=== PATIENT | female | born 1990 | race Caucasian/White ===

== ENCOUNTER 2019-04-04 15:11 | Inpatient (IN) | payer OTHER ==
[2019-04-04] MEDS ORDERED: miSOPROStoL 100 MCG TAB ONE (15:18)
[2019-04-04] MEDS ORDERED: Ringers Lactate 1,000 ML IV PRN (15:35)
[2019-04-04] MEDS ORDERED: BUTORPHANOL 1 MG/ML INJ IV PRN (15:35)
[2019-04-04] MEDS ORDERED: METHYLERGONOVINE 0.2MG/ML AMP IM PRN (15:35)
[2019-04-04] MEDS ORDERED: PROMETHAZINE INJ 25 MG/ML AMP IM PRN ×2 (15:35)
[2019-04-04] MEDS ORDERED: CARBOPROST TROME 250 MCG/ML IM PRN (15:35)
[2019-04-04] MEDS ORDERED: OXYTOCIN/LR 20 UNIT/1,000 ML BAG IV SCH (16:00)
[2019-04-04] MEDS ORDERED: Ringers Lactate 1,000 ML IV SCH (16:00)
[2019-04-04 16:15] LABS: Absolute Lymphocytes (CBC) 1.4 K/uL (0.7-4.9); Basophils % 0.4 % (0-1.3); Hematocrit 37.8 % (36.0-45.0); Lymphocytes % 14.5 % (15.3-44.8); MPV 9.9 fL (7.6-11.3); RBC Red Blood Cell Count 3.95 M/uL (3.86-4.86); Urine Appearance CLOUDY; Urine Bilirubin NEGATIVE (NEG); Urine Blood NEGATIVE (NEG); Urine Color YELLOW; Urine Glucose NEGATIVE (NEG); Urine Protein NEGATIVE (NEG); Urine Specific Gravity 1.025 (1.005-1.030); Urine pH 6.5 (5.0-7.0)
[2019-04-04 16:16] LABS: Urine Microscopic Reflex ORDER UMIC
[2019-04-04 17:07] LABS: Urine Bacteria >50 /HPF (<20); Urine Culture Reflex Order REFLEXED; Urine RBC <5 /HPF (NONE SEEN)
[2019-04-04 17:59] VITALS: BMI 36.3
[2019-04-04] MEDS ORDERED: TERBUTALINE SULF 1 MG/1ML SQ ONE (18:52)
[2019-04-04] MEDS ORDERED: TERBUTALINE SULF 1 MG/1ML ONE (18:53)
--- NOTE | 2019-04-04 19:16 | PREOPHP ---
Date of Admission: 04/04/2019 This is a 29-year-old primigravida, 39 weeks 4 days for Cytotec insertion. Full insertion talk and p re-insertion talk given. Patient is Rh negative, has had RhoGAM during the . Rubella immun e. Patient has had significant swelling, but thus far not become preeclamptic. Her cervix is 1 to 1 .5 cm, 50% effaced, vertex, -1 to -2 station. We have inserted 50 mcg of Cytotec. We will insert an other 50 mcg in 6 hours and a third dose if needed 6 hours later. At that point, sometime after the third dose of Cytotec, we will start oxytocin. Anticipate rupture of membranes tomorrow morning and have in the baby some time tomorrow. Full labor and Cytotec talk given. CHUY/ASYA Voice ID: [id number]
--- NOTE | 2019-04-04 21:42 | PN ---
The patient had 50 mcg of Cytotec inserted at approximately 3:30. About 30-45 minutes ago started quiroz ving decelerations some into the 80 range for 30-40 seconds. She was hydrated and given a dose of van bcu terbutaline 0.25. Contractions which she was not even aware of have apparently spaced out and th e baby looks fine now. Pelvic check shows patient has dilated even though she is not aware of contra ctions she is now 2 cm, 60% -1 station. Vertex well applied. Rupture of membranes, clear fluid. Ba by looks excellent in the monitor now. We will let her go into labor on her own from this point on. We will only add Pitocin later in the labor if she is making no good progress, but with rupture of m embranes I think that she should go into a good labor now since she had the Cytotec to start the labo r. Hopefully, she would not need anything from this point on, but if she does we will start Pitocin later. Full discussion with the patient and family. CHUY/ASYA Voice ID: [id number] Report ID: [id number]
[2019-04-04] MEDS ORDERED: FENTANYL CITR 100 MCG/2 ML ONE (21:56)
[2019-04-04] MEDS ORDERED: FENTANYL/BUPIVACAINE/NS/PF 200 MCG/100 ML BAG EP ONE (21:56)
[2019-04-04] MEDS ORDERED: BUPIVACAINE 0.25% PF 30 ML VIAL ONE (21:56)
[2019-04-04] MEDS ORDERED: LIDOCAINE 1% MPF 30 ML VIAL ONE (23:33)
[2019-04-05] MEDS ORDERED: BISACODYL 10 MG RECTAL SUPP RECT PRN (00:08)
[2019-04-05] MEDS ORDERED: Oxycodone HCl/Acetaminophen 1 TAB TAB PO PRN ×2 (00:08)
[2019-04-05] MEDS ORDERED: IBUPROFEN 200 MG TAB PO PRN (00:08)
[2019-04-05] MEDS ORDERED: DOCUSATE NA/SENNA CONC 1 TAB PO PRN (00:08)
[2019-04-05] MEDS ORDERED: ACETAMINOPHEN 500 MG TAB PO PRN (00:08)
[2019-04-05] MEDS ORDERED: DIPHENHYDRAMINE 25 MG TAB/CAP PO PRN (00:08)
--- NOTE | 2019-04-05 00:43 | OP ---
Surgeon: Oneal Evans MD History: A 29-year-old primigravida, 39 weeks 4 days, 1.5 cm on admission. Cytotec 50 mcg placed an d the patient started having good firm contractions, but was really not aware of them. At 2 cm ruptu re of membranes was performed, clear fluid. Patient had variable decelerations during the labor, alana picious for cord pattern and at the time of delivery indeed a shoulder cord was noted, but very loose . At 4 cm patient requested and received epidural anesthesia. After the epidural was placed, she wa s checked and she was 8 cm, went rapidly to complete. Second stage between 30 and 45 minutes. Spont aneous vaginal delivery of a 7-pound 9-ounce female. Apgars 9 and 9. Second-degree midline lacerati on simulating episiotomy repaired with 2-0 chromic. Schultze delivery of the placenta, which was ins pected and noted be heavily calcified, but otherwise normal and intact. Estimated blood loss 350 to 400 mL. The patient had been catheterized during the second stage of labor and 450 mL was obtained. Tolerated all procedures well. She is Rh negative, will be qualified for RhoGAM. Beta strep negati ve. Final Diagnoses: Term intrauterine 39 weeks 4 days. Cytotec for labor induction. Vaginal delivery. Epidural anesthesia. CHUY/ASYA Voice ID: [id number] Report ID: [id number]
--- NOTE | 2019-04-05 00:45 | PN ---
The patient reached 4 cm, requested epidural and within the next hour or less, the patient was 8 cm w hen the epidural was completed. She is comfortable at this point, but cannot feel pressure. Baby's heart rate had decelerated initially and now is back into the normal range. The epidural set on 10, we will move it back to 8, so she can have more effective push power. She should be able to start pu shing soon and once the baby comes down just another couple of centimeters, I think she will be effec tive pusher and we should be able to get the baby delivered. CHUY/ASYA Voice ID: [id number] Report ID: [id number]
[2019-04-05] MEDS ORDERED: OXYTOCIN/LR 20 UNIT/1,000 ML BAG IV SCH (01:00)
[2019-04-05 05:53] LABS: RPR (Rapid Plasma Reagin) NON-REACT (NON-REACT)
[2019-04-05] MEDS ORDERED: Rho(D) IG (HUMAN) 300 MCG SYR IM ONE (15:33)
[2019-04-06 08:16] VITALS: BP 124/83; TEMP 97.9
--- NOTE | 2019-04-06 14:30 | DS ---
29-year-old primigravida, 39 weeks 4 days, had Cytotec inserted, went into an active labor. Had epid ural anesthesia during her labor. Delivered of a 7 pounds, 9 ounce female. Apgars 9 and 9. Second- degree laceration, episiotomy repair with 2-0 chromic. Schultze delivery of the placenta, which was inspected and noted to be intact and normal, 350 to 400 cc estimated blood loss. Beta str ep negative. Rh negative. Patient has received RhoGAM but baby is Rh positive. No post-epidural pr oblems. Patient has had urinary retention. Hill catheter has been inserted. She will try to urina te around the catheter this morning with catheter being slightly pushed cephalad. If unable to void, we will keep the Hill in for another 24 hours and she will come to my office for Hill removal. Re quests no analgesics on dismissal. No post-epidural problems. Final Diagnoses: Term intrauterine at 39 weeks 4 days, Cytotec for cervical ripening. Lab or induction. Vaginal delivery. Epidural anesthesia. Urinary retention. RhoGAM administered. CHUY/MEREDITHL Voice ID: [id number] Report ID: [id number]
--- NOTE | 2019-04-06 14:30 | PN ---
, lochia is normal. Vital signs are stable. Baby is Rh positive, so she will receive RhoG AM before she leaves. Full talk given. Patient was unable to void. This morning she had catheter placed and had 1700 cc residual. We will leave the catheter in for 24 hours, begin clampin g for 2 hours and then try to urinate around the catheter later this evening. She knows that if she cannot urinate well we will send her home with a catheter and take it out later in the week at the [facility]. Full talk given other than the urinary retention. She is doing well and has no com plaints or problems. CHUY/ASYA Voice ID: [id number] Report ID: [id number]
[2019-04-08 05:42] LABS: HBsAG Nonreactive (Nonreactive)
== END 2019-04-06 12:10 | disposition home or self-care (01) | DRG 806 ==
LOC: 2ND-WC 15:11
PROVIDERS: ADMIT Specialist; ATTEND Specialist
PROC: 10907ZC Drainage of Amniotic Fluid, Therapeutic from Products of Conception, Via Natural or Artificial Opening (ICD-10-PCS; 2019-04-04)
PROC: 3E0P7VZ Introduction of Hormone into Female Reproductive, Via Natural or Artificial Opening (ICD-10-PCS; 2019-04-04)
PROC: 00HU33Z Insertion of Infusion Device into Spinal Canal, Percutaneous Approach (ICD-10-PCS; 2019-04-04)
PROC: 10E0XZZ Delivery of Products of Conception, External Approach (ICD-10-PCS; principal; 2019-04-05)
PROC: 0KQM0ZZ Repair Perineum Muscle, Open Approach (ICD-10-PCS; 2019-04-05)
PROC: 3E0234Z Introduction of Serum, Toxoid and Vaccine into Muscle, Percutaneous Approach (ICD-10-PCS; 2019-04-05)
DX: O70.1 Second degree perineal laceration during delivery (principal); O36.0930 Maternal care for other rhesus isoimmunization, third trimester, not applicable or unspecified; Z37.0 Single live birth; O76 Abnormality in fetal heart rate and rhythm complicating labor and delivery; O90.89 Other complications of the puerperium, not elsewhere classified; R33.9 Retention of urine, unspecified; Z3A.39 39 weeks gestation of pregnancy
CPT/HCPCS: 36415; 81003; 81015; 85025; 85461; 86592; 86850; 86870; 86901; 87086; 87088; 87340; J2210; J2590; J2790; J3010; J3105; J7120